=== PATIENT | female | born 2000 | race Caucasian/White ===

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

== ENCOUNTER 2018-07-20 18:56 | Emergency (ER) | payer OTHER ==
[~2018-07-20] VITALS: Ht 162.6 cm; Wt 81.6 kg
[2018-07-20 20:24] VITALS: BP 124/82
== END 2018-07-20 20:24 | disposition home or self-care (01) ==
LOC: ED 18:56
DX: L05.91 Pilonidal cyst without abscess (principal)

== ENCOUNTER 2018-07-26 18:02 | Emergency (ER) | payer OTHER | END 2018-07-26 18:22 | disposition left against medical advice (07) | LOC: ED 18:02 | DX: Z53.21 Procedure and treatment not carried out due to patient leaving prior to being seen by health care provider (principal) ==

== ENCOUNTER 2018-07-31 19:12 | Emergency (ER) | payer OTHER ==
[~2018-07-31] VITALS: Ht 162.6 cm; Wt 82.1 kg
[2018-07-31 19:20] VITALS: Ht 162.6 cm; Wt 82.1 kg
[2018-07-31 20:56] VITALS: BP 124/76
== END 2018-07-31 20:57 | disposition home or self-care (01) ==
LOC: ED 19:12
DX: Z48.00 Encounter for change or removal of nonsurgical wound dressing (principal)

== ENCOUNTER 2018-08-02 21:54 | Emergency (ER) | payer OTHER ==
[~2018-08-02] VITALS: Ht 162.6 cm; Wt 82.7 kg
[2018-08-02 22:05] VITALS: Ht 162.6 cm; Wt 82.7 kg
[2018-08-02 23:38] VITALS: BP 130/75
== END 2018-08-02 23:38 | disposition home or self-care (01) ==
LOC: ED 21:54
DX: Z48.01 Encounter for change or removal of surgical wound dressing (principal)

== ENCOUNTER 2018-09-19 16:07 | Emergency (ER) | payer OTHER ==
[2018-09-19 16:28] VITALS: Ht 160 cm
[2018-09-19 18:20] LABS: BASOPHIL % 0.2 % (0-2); PLATELET COUNT 220 x10^3mcL (130-400)
[2018-09-19 18:23] LABS: CALCIUM 9.2 mg/dL (8.5-10.1); CARBON DIOXIDE 24.7 mmol/L (21-32); CHLORIDE SERUM 100 mmol/L (98-107); CREATININE SERUM 0.7 mg/dL (0.6-1.0); GFR1 > 60 mL/min; GLUCOSE SERUM 102 mg/dL (74-106); POTASSIUM SERUM 3.4 mmol/L (3.5-5.1); SODIUM SERUM 134 mmol/L (136-145)
[2018-09-19 18:28] LABS: ALBUMIN 3.9 g/dL (3.4-5.0); ALKALINE PHOSPHATASE 97 U/L (46-116); ALT/SGPT 25 U/L (14-59); AST/SGOT 14 U/L (15-37); BILIRUBIN TOTAL 0.8 mg/dL (0.20-1.00); TOTAL PROTEIN, SERUM 8.6 g/dL (6.4-8.2)
[2018-09-19 18:28] LABS: AMPHETAMINE QUAL UR NONE DETECTED (See below)
[2018-09-19 18:57] VITALS: BP 101/57
== END 2018-09-19 21:38 | disposition home or self-care (01) ==
LOC: ED 16:07
PROVIDERS: Emergency Medicine
DX: Z13.89 Encounter for screening for other disorder (principal); F43.20 Adjustment disorder, unspecified
CPT/HCPCS: 36415; Q0162

== ENCOUNTER 2019-06-12 19:05 | Emergency (ER) | payer OTHER ==
[~2019-06-12] VITALS: Ht 162.6 cm; Wt 82.1 kg
[2019-06-12 19:41] VITALS: Ht 162.6 cm; Wt 82.1 kg
[2019-06-12 22:30] VITALS: BP 113/66
== END 2019-06-12 22:30 | disposition home or self-care (01) ==
LOC: ED 19:05
DX: L05.01 Pilonidal cyst with abscess (principal)

== ENCOUNTER 2019-07-05 22:22 | Emergency (ER) | payer OTHER | END 2019-07-05 23:28 | disposition left against medical advice (07) | LOC: ED 22:22 | DX: Z53.21 Procedure and treatment not carried out due to patient leaving prior to being seen by health care provider (principal) ==